=== PATIENT | male | born 1945 | race Caucasian/White ===

== ENCOUNTER 2016-10-02 12:09 | Observation (INO) | payer OTHER ==
--- NOTE | 2016-10-02 12:27 | CPEKG ---
Heart Rate: 60 RR Interval: 1000 P-R Interval: 180 QRSD Interval: 90 QT Interval: 420 QTC Interval: 420 P [place]: 37 QRS [place]: -28 T Wave [place]: 55 EKG Severity - ABNORMAL ECG - EKG Impression: SINUS RHYTHM EKG Impression: VENTRICULAR BIGEMINY EKG Impression: BORDERLINE LEFT AXIS DEVIATION Electronically Signed By: Estrellita Donald 02-Oct-2016 14:41:12
[2016-10-02] MEDS ORDERED: ASPIRIN 81 MG CHEWABLE TAB PO ONE (12:32)
[2016-10-02 12:33] LABS: ADD MORPH? NO; ATYPICAL LYMPHOCYTE FLAG 0 (0-99); FRAGMENT RBC FLAG 0 (0-99); HEMOGLOBIN 13.3 g/dL (13.7-17.5); LEFT SHIFT FLG 0 (0-99); LIPEMIA HEMOLYSIS FLAG 80 (0-99); MEAN CELL HEMOGLOBIN 33.7 pg (27.9-34.1); MEAN CELL HEMOGLOBIN CONCENTR. 33.3 g/dL (32.4-36.7); MEAN CELL VOLUME 101.3 fL (81.5-99.8); PLATELET CLUMPS FLAG 0 (0-99); PLATELET COUNT 115 10^3/uL (150-400); RED BLOOD CELL COUNT 3.95 10^6/uL (4.40-6.38); RED CELL DISTRIBUTION WIDTH 13.5 % (11.5-15.2)
[2016-10-02 12:36] LABS: ADD DIFF? YES; ADD SCAN? NO
[2016-10-02 12:48] LABS: ANION GAP 11 mEq/L (8-16); CALCIUM 9.4 mg/dL (8.5-10.4); CARBON DIOXIDE 24 mEq/l (22-31); CHLORIDE 106 mEq/L (97-110); CREATININE 1.1 mg/dL (0.7-1.3); GLOMERULAR FILTRATION RATE > 60; GLUCOSE 81 mg/dL (70-100); SODIUM 141 mEq/L (134-144)
[2016-10-02 12:59] LABS: TROPONIN I < 0.012 ng/mL (0.000-0.034)
--- NOTE | 2016-10-02 13:03 | EDPHY ---
H & P Time Seen by Provider: 10/02/16 12:43 HPI/ROS: CHIEF COMPLAINT: Chest pain HISTORY OF PRESENT ILLNESS: Patient is a 71-year-old male who presents to the emergency department with chest pain. The patient was driving his car to the dealership at approximately noon when he developed mild left-sided chest pain. He denies any radiation of his pain. No shortness of breath or cough. He felt lightheaded and dizzy. Patient also developed nausea with no vomiting. No diaphoresis. His symptoms lasted 5-10 minutes and then resolved. Patient has no leg pain or swelling. No recent travel. Patient states he had a cardiac catheterization 15 years ago. He was told he had a 50% occlusion at that time. No intervention was performed. He is not currently on any medications. REVIEW OF SYSTEMS: My complete review of systems is negative except as mentioned in the HPI. Past Medical/Surgical History: Includes CLL Past surgical history: Noncontributory Social history: The patient does not smoke. He smoked for 50 years ago. He drinks alcohol occasionally. Smoking Status: Former smoker Physical Exam: Vitals noted GENERAL: Well-appearing, in no acute distress, alert. HEENT: Eyes normal to inspection, normal pharynx, no signs of dehydration. NECK: No thyromegaly, no lymphadenopathy, supple. RESPIRATORY: Clear to auscultation bilaterally, no rales, rhonchi or wheezing. CVS: Regular rate and rhythm, no rubs, murmurs, or gallops. ABDOMEN: Soft, nontender, nondistended, no organomegaly. BACK: Normal to inspection, no CVA tenderness. SKIN: Normal color, no rash, warm, dry. No pallor. EXTREMITIES: No pedal edema, no calf tenderness, no Homans sign or cords, no joint swelling. NEURO/PSYCH: Higher functions: Alert and Oriented x3. Normal speech and cognition. Normal mood and affect. Cranial nerves: Normal as tested. Cerebellar: Normal as tested. Good finger to nose, good [id number], normal gait. Peripheral exam: Normal motor exam. Normal sensation. Constitutional: Initial Vital Signs Temperature (C) 36.5 C 10/02/16 12:16 Heart Rate 63 10/02/16 12:16 Respiratory Rate 18 10/02/16 12:16 Blood Pressure 120/70 10/02/16 12:16 O2 Sat (%) 98 10/02/16 12:16 O2 Delivery Mode Room Air Allergies/Adverse Reactions: No Known Allergies Allergy (Unverified 10/02/16 12:15) Home Medications: Medication Instructions Recorded NK [No Known Home Meds] 10/02/16 Medical Decision Making ED Course/Re-evaluation: In the emergency department I discussed possible etiologies with the patient. I answered all his questions. He is given aspirin 324 mg orally. Laboratory studies, EKG and chest x-ray were ordered. EKG: Sinus rhythm at 60. Borderline and left axis deviation. Normal intervals. VPCs Patient [place] [address]. I have no previous values in our system. It is noted the patient is a [facility] patient. The patient's troponin was negative. Chest x-ray: No acute disease Discussed the results with the patient. I answered all his questions. On recheck the patient had no chest pain or shortness of breath. I discussed case with the hospitalist service. Dr. Alanis will admit. I discussed case with [facility] to inform them of my plan for admission. Differential Diagnosis: Differential includes but is not limited to ACS, acute [place], dysrhythmia, dissection, aneurysm, CVA - Data Points Laboratory Results: Laboratory Results 10/02/16 12:25 10/02/16 12:25 10/02/16 10/02/16 12:25 12:25 WBC 38.83 10^3/uL H 10^3/uL (3.80-9.50) RBC 3.95 10^6/uL L 10^6/uL (4.40-6.38) Hgb 13.3 g/dL L g/dL (13.7-17.5) Hct 40.0 % % (40.0-51.0) MCV 101.3 fL H fL (81.5-99.8) MCH 33.7 pg pg (27.9-34.1) MCHC 33.3 g/dL g/dL (32.4-36.7) RDW 13.5 % % (11.5-15.2) Plt Count 115 10^3/uL L 10^3/uL (150-400) MPV 10.0 fL fL (8.7-11.7) Neut % (Auto) Not Reported Lymph % (Auto) Not Reported [place] % (Auto) Not Reported Eos % (Auto) Not Reported Baso % (Auto) Not Reported Nucleat RBC Rel Count 0.0 % % (0.0-0.2) Absolute Neuts (auto) Not Reported Absolute Lymphs (auto) Not Reported Absolute Monos (auto) Not Reported Absolute Eos (auto) Not Reported Absolute Basos (auto) Not Reported Absolute Nucleated RBC 0.00 10^3/uL 10^3/uL (0-0.01) Immature Gran % Not Reported Immature Gran # Not Reported Platelet Estimate Pending Smear Review By Pending Sodium 141 mEq/L mEq/L (134-144) Potassium 4.0 mEq/L mEq/L (3.5-5.2) Chloride 106 mEq/L mEq/L (97-110) Carbon Dioxide 24 mEq/l mEq/l (22-31) Anion Gap 11 mEq/L mEq/L (8-16) BUN 18 mg/dL mg/dL (7-23) Creatinine 1.1 mg/dL mg/dL (0.7-1.3) Estimated GFR > 60 Glucose 81 mg/dL mg/dL (70-100) Calcium 9.4 mg/dL mg/dL (8.5-10.4) Troponin I < 0.012 ng/mL ng/mL (0.000-0.034) Medications Given: Discontinued Medications Aspirin (Aspirin) 324 mg PO EDNOW ONE Stop: 10/02/16 12:33 Last Admin: 10/02/16 12:34 Dose: 324 mg Departure - Departure Disposition: [facility] In[facility] Acute Clinical Impression: Dizziness Chest pain Qualifiers: Chest pain type: other chest pain Qualified Code(s): R07.89 - Other chest pain Condition: Good Referrals: MARLEN KUHN [Other] - As per Instructions
[2016-10-02 13:23] LABS: MACROCYTES 1+; PLATELET ESTIMATE DECREASED (ADEQ)
[2016-10-02] MEDS ORDERED: ALBUTEROL 3 ML DEYVIAL IH PRN (15:16)
[2016-10-02] MEDS ORDERED: PROMETHAZINE HCL 25 MG/ML INJ IVP PRN (15:16)
[2016-10-02] MEDS ORDERED: ACETAMINOPHEN 325 MG TAB PO PRN (15:16)
[2016-10-02] MEDS ORDERED: ONDANSETRON DISINTEGRATING 4 MG TAB PO PRN (15:16)
[2016-10-02] MEDS ORDERED: ONDANSETRON 4 MG/2 ML VIAL IVP PRN (15:16)
[2016-10-02] MEDS ORDERED: oxyCODONE IR 5 MG TAB PO PRN (15:16)
--- NOTE | 2016-10-02 18:53 | GHP ---
[f rep st] HISTORY AND PHYSICAL DATE OF ADMISSION: 10/02/2016 CHIEF COMPLAINT: Chest pain. HISTORY: This is a 71-year-old man with past medical history of CLL who presents after experiencing about 30 minutes of severe substernal chest pain associated with nausea, lightheadedness, dizziness , and shortness of breath. The patient notes symptoms began around noon today while he was driving nearby to the hospital. Shortly after arrival, his symptoms did resolve spontaneously without inter vention. He had similar symptoms in the past, he notes about 15 years ago, at which time he underwe nt an angiogram. He notes that he was told back then that he had a 50% blockage of one of his coron sarah arteries but that no intervention was required. He has not had any chest pain in between then a nd now. He is not on any medications at this time. He notes he is quite active, cycling long dista nces, and does not generally get chest pain with any sort of exertion. He does note that he occasio zak gets some swelling in his ankles and feet and notes that his feet occasionally appear blue. Joy dickson has not had any recent illness. PAST MEDICAL HISTORY: CLL. PAST SURGICAL HISTORY: Shoulder and wrist surgeries. FAMILY HISTORY: Brother at age 71 in his sleep spontaneously, thought to be secondary to heart attack. Father of old age at age 93. Mother when he was young of cancer, he does not kn ow what kind. SOCIAL HISTORY: Patient is . He has a child. He is very active, cycling frequently long di stances. He has a remote smoking history but quit about 50 years ago. No significant alcohol use. No drug use. REVIEW OF SYSTEMS: A 10-point review of systems obtained, negative except as per HPI. HOME MEDICATIONS: None. ALLERGIES: None. PHYSICAL EXAM: VITAL SIGNS: BP 128/77, heart rate 63, respiratory rate 16, O2 sats 93% on room air , temperature is 36.4. GENERAL APPEARANCE: Well-developed, well-nourished man, awake, alert, no ac lauren distress. EYES: Anicteric. HENT: Oropharynx clear. CARDIOVASCULAR: Regular rate and rhythm, no MRG, sligh tly distant heart sounds. PULMONARY: CTA bilaterally. Normal work of breathing. ABDOMEN: Soft, nontender, nondistended. EXTREMITIES: No clubbing, cyanosis, or edema. SKIN: The patient has harjeet e varicosities in his distal lower extremities but otherwise warm, dry and well perfused. NEURO/PSY CHIATRIC: Oriented, appropriate, calm, pleasant. CLINICAL DATA: Labs reviewed. Significant for white blood cell count of 38.8, hematocrit of 40, pl atelets of 115. Chemistry is unremarkable. Troponins less than 0.012. Chest x-ray, personally rev iewed and interpreted, shows findings consistent with COPD; otherwise, no acute findings. EKG personally reviewed and interpreted showing sinus rhythm. There is borderline left axis deviati on and ventricular bigeminy. ASSESSMENT AND PLAN: This is a 71-year-old man with past medical history of CLL who presents with c hest pain in the setting of known nonobstructive coronary artery disease. 1. Chest pain. Some concerning descriptors in his history. He does have a reassuring initial eval uation including troponin and EKG that is not clearly ischemic. It is a concern that he has had harjeet e underlying coronary disease without any real secondary risk modification being undertaken. At thi s time we will check a lipid panel and hemoglobin A1c. We will monitor on telemetry with serial tro ponins. Will order a stress test for the morning but also consult Cardiology in case they feel it w ould be more prudent to proceed with coronary angiography. 2. Nonobstructive coronary disease as per above. Patient has not been on aspirin, statin in the hi st. Likely would be intolerant of beta cornell with hypotension and bradycardia at baseline. Again , workup is as per above. 3. Bradycardia. The patient has been noted to be neeta into the 40s since arrival. This has not b een symptomatic. He does not believe this is his usual baseline. He states he usually runs around 60. Again, will monitor on telemetry and Cardiology has been consulted. 4. Chronic lymphocytic leukemia. The patient states that his white blood cell count has been in th e 30,000 range for quite some time and this is being followed by Oncology without any current plans for intervention. We will continue to trend. DISPOSITION: Observation status. Suspect he will need less than 48 hours stay for evaluation and m anagement of above. Patient is new to my care. Old records reviewed, summarized as per HPI and past medical history. C are plan reviewed with Oncologist including request for Cardiology consultation. /[id number]/MODL
--- NOTE | 2016-10-03 01:18 | CPEKG ---
Heart Rate: 47 RR Interval: 1277 P-R Interval: 208 QRSD Interval: 92 QT Interval: 480 QTC Interval: 425 P [place]: 42 QRS [place]: -13 T Wave [place]: 61 EKG Severity - ABNORMAL ECG - EKG Impression: NORMAL SINUS RHYTHM MINIMAL ST DEPRESSION EKG Impression: BORDERLINE T ABNORMALITIES, ANT-LAT LEADS EKG Impression: NONSPECIFIC ST_T WAVE ABNORMAILITES Electronically Signed By: Dawson Gomez 03-Oct-2016 15:54:53
[2016-10-03 05:30] LABS: ADD MORPH? NO; ATYPICAL LYMPHOCYTE FLAG 0 (0-99); FRAGMENT RBC FLAG 0 (0-99); HEMATOCRIT 40.8 % (40.0-51.0); HEMOGLOBIN 13.6 g/dL (13.7-17.5); LEFT SHIFT FLG 0 (0-99); LIPEMIA HEMOLYSIS FLAG 80 (0-99); MEAN CELL HEMOGLOBIN 33.9 pg (27.9-34.1); MEAN CELL HEMOGLOBIN CONCENTR. 33.3 g/dL (32.4-36.7); MEAN CELL VOLUME 101.7 fL (81.5-99.8); MEAN PLATELET VOLUME 9.7 fL (8.7-11.7); PLATELET CLUMPS FLAG 0 (0-99); PLATELET COUNT 106 10^3/uL (150-400); RED BLOOD CELL COUNT 4.01 10^6/uL (4.40-6.38); RED CELL DISTRIBUTION WIDTH 13.5 % (11.5-15.2)
[2016-10-03 05:34] LABS: ADD DIFF? YES; ADD SCAN? NO
[2016-10-03 05:46] LABS: CHOLESTEROL 172 mg/dL (140-220); CHOLESTEROL/HDL RATIO 3.51 RATIO (1.00-4.97); HIGH DENSITY LIPOPROTEIN 49 mg/dL (40-65); LDL/HDL RATIO 2.18 RATIO (1.00-3.64); LOW DENSITY LIPOPROTEIN 107 mg/dL (80-100); NON-HIGH DENSITY LIPOPROTEIN 123 mg/dL (90-129); TRIGLYCERIDE 84 mg/dL (40-150); VERY LOW DENSITY LIPOPROTEINS 16 mg/dL (8-25)
[2016-10-03 06:06] LABS: PLATELET ESTIMATE DECREASED (ADEQ); SMUDGE CELLS 1+
[2016-10-03 07:14] VITALS: BP 120/75; PULSE 63; TEMP 97.9; O2SAT 97
[2016-10-03 07:15] VITALS: RESP 20
--- NOTE | 2016-10-03 08:04 | HOSPPROG ---
Hospitalist Progress Note Assessment/Plan: 71 yo M w almost certain vasovagal event following blood draw VV- impressive w HR in 30's and sbp in 60's w diaphoresis ekg w sinus neeta and no ischemic changes (interp by me) spontaneous resolution c/w vagal 35' crit care Subjective: responded to STAT team call for bradycardia/hypotension following blood draw Objective: Vital Signs Temp Pulse Resp BP Pulse Ox 36.6 C 63 20 120/75 97 10/03/16 07:09 10/03/16 07:09 10/03/16 07:09 10/03/16 07:09 10/03/16 07:09 Laboratory Results 10/03/16 05:21 10/02/16 10/03/16 10/04/16 05:59 05:59 05:59 Intake Total 350 Balance 350 - Physical Exam Constitutional: other (diaphoretic) Eyes: PERRL, anicteric sclera Ears, Nose, Mouth, Throat: moist mucous membranes, hearing normal Cardiovascular: bradycardia, No systolic murmur Respiratory: no respiratory distress Gastrointestinal: normoactive bowel sounds Skin: warm, normal color Musculoskeletal: full muscle strength Neurologic: No AAOx3 ICD10 Worksheet Patient Problems: Problems Problem Status Onset Chest pain Acute Dizziness Acute
[2016-10-03 10:05] LABS: HEMOGLOBIN A1C 5.7 % (4.0-6.0)
--- NOTE | 2016-10-03 10:25 | CPEKG ---
Heart Rate: 56 RR Interval: 1071 P-R Interval: 188 QRSD Interval: 96 QT Interval: 440 QTC Interval: 425 P [place]: 53 QRS [place]: 6 T Wave [place]: 51 EKG Severity - OTHERWISE NORMAL ECG - EKG Impression: SINUS RHYTHM EKG Impression: VENTRICULAR PREMATURE COMPLEX Electronically Signed By: Dawson Gomez 03-Oct-2016 15:53:10
--- NOTE | 2016-10-03 12:45 | CPR ---
[f rep st] NONINVASIVE CARDIAC PROCEDURE REPORT TEST PERFORMED: Exercise treadmill of exercise treadmill MPI study. SUPERVISING HOOP MACHINE OPERATOR: Gustabo Little MD. INDICATION FOR STRESS TESTING: Episodes of chest pain, known history of CAD, multiple cardiac risk factors. PRE: After obtaining informed consent, ensuring patient's n.p.o. status, patient was placed on 12-l ead electrocardiogram. Initial EKG shows sinus rhythm, leftward axis, nonspecific inferior lateral T-wave abnormalities. Patient denies any chest pain, shortness of breath, or symptoms suggesting of ischemia. Initial blood pressure 130/70, saturation 96%. STRESS: The patient was placed on exercise treadmill, following standard Blade protocol with the fo llowing findings: 1. Patient exercised for 10 minutes. 2. 10.9 METs. 3. Heart rate attained was 143 beats per minute, which was 95% of MPHR. 4. At peak exercise, there was noted sub millimeter upsloping ST depression in inferior lateral yousuf ds. 5. Patient had no chest pain or symptoms suggesting of ischemia throughout testing. 6. BP variations: Rest 130/70. Peak 140/80. 7. SpO2 greater than 90% throughout the testing. 8. Patient had occasional premature ventricular contraction during stress and recovery stage but no other malignant arrhythmias. 9. Testing was stopped due to maximum effort. 10. Roman treadmill score of 10, placing him at low cardiovascular risk. RECOVERY: Patient recovered for 5 minutes, heart rate returned back to baseline. He reported gifty nued to be asymptomatic. Occasional premature ventricular contractions noted. IMPRESSION: A 71-year-old male with known history of CAD, underwent exercise treadmill testing MPI study. Treadmill testing negative for ischemia. Roman treadmill score of 10, placing patient at low cardiovascular risk. The patient's vital signs are stable. He has been taken down to [facility] for post MPI imaging. MPI results pending. /[id number]/MODL
--- NOTE | 2016-10-03 13:45 | GCON ---
[f rep st] CONSULTATION CARDIAC CONSULTATION SUPERVISING SALES DEVELOPMENT EXECUTIVE: Dr. Gustabo Little. INDICATION FOR CARDIOLOGY CONSULTATION: Patient with known history of CAD, recent episode of chest pressure and lightheadedness. HISTORY OF PRESENT ILLNESS: The patient is a 71-year-old male. He has informed me that he has known history of CAD, based off a cardiac catheterization in 2001 done at [facility]. At that time, he reports that he was told that he had a 50% narrowing of one of his 3 major coronary arteries , but he is uncertain of where. He does state that he is followed by [facility]. Patient also reports other past medical history including CLL and sleep apnea. He reports that he had been in his normal state of health. He reports he was driving his 's car to the dealership for evaluation, from [place] where he resides. [place] [address] [place] [address], he developed a midsternal mild chest pressure, reporting as 2/10, with associated symptoms of mild dizziness and nausea. He reports these symptoms, in his words, were very "minor." Thinking nothing of this, he thought they would reside within a few minutes. As he drove on for another 5-10 minutes, symptoms did not relieve, but did not worsen, and as he passed [facility], he felt that due to his previous history, his age, he better be further evaluated. He was admitted through the emergency department, where he underwent an electrocardiogram, initial EKG showing sinus rhythm, left axis deviation, with premature ventricular contraction, no acute ST or T-wave abnormalities suggestive of ischemia. The patient reported within 5 to 10 minutes of ER admission, his symptoms and pressure did subside. He denies any palpitations at the time of symptoms. His initial troponin in the ER was less than 0.012. He was given aspirin. Chest x-ray was done, showing hyperexpanded lungs, consistent with COPD, no other acute cardiopulmonary process. He was admitted to 3rd floor and placed on continuous telemetry monitoring. He has had cycled troponins 2 more times, which have all been less than 0.012. He did, last night around 1 a.m., while getting blood work, when he was having an IV placed into his left antecubital, did report feeling sudden lightheadedness, nausea, and very diaphoretic. It was noted that he did drop his heart rate down into the 30s , and appeared by the strip, junctional rhythm. A stat team was called, and he was given IV fluid by Dr. Antoine of hospital services. This was felt to be a vasovagal reaction. Within 15-20 minutes, he felt better, with IV fluids. He reports that during that time, he had no chest pressure or pain. Patient informs me today during our interview that he is an avid cyclist, usually rides between 100-110 miles a week. He does report last week while training, he was able to complete his regular exercise, but did have some mild fatigue symptoms. He denies any recent fevers, chills, night sweats or signs of infection. Denies any bleeding issues. He reports no history of orthopnea, PND, edema, palpitations, near-syncope, or syncopal events. Denies any symptoms suggestive of TIA or CVA. He has cardiac risk factors besides known history of CAD that include age, sex, previous smoker, and he does report that his older brother of sudden cardiac at 70, uncertain of cause. PAST MEDICAL HISTORY: Includes non-flow limiting CAD based off cardiac catheterization in 2001; sleep apnea, for which he is using a bite guard; CLL, for which he is followed by Dr. Fan of Oncology. PAST SURGICAL HISTORY: Includes shoulder and wrist surgeries. FAMILY HISTORY: Patient reports older brother dying at age 70-71 during his sleep of sudden cardiac . They think potentially this was due to a cardiac issue, but the patient reports no autopsy was done. The patient reports father of old age at 93, and mother of cancer, young. SOCIAL HISTORY: He is a superintendent general. He is . He has 1 adult child who is alive and well. He reports previous history of smoking when he was in the [employer], quitting greater than 50 years ago. He drinks 1 beer a week. Denies any illicit drug use. Occasional caffeine use. REVIEW OF SYSTEMS: A 10-point review of systems done on patient. All negative, except as mentioned above. ALLERGIES: Patient reports no known drug allergies. HOME MEDICATIONS: The patient reports no home medications at this time. PHYSICAL EXAMINATION: GENERAL APPEARANCE: Tall, well-groomed male. He is alert and oriented to person, place, time, and situation. Appears to be under no acute distress. CURRENT VITAL SIGNS: Blood pressure is 120/75, heart rate of 63, sinus rhythm on the monitor, respirations 20, saturating 97% on room air, temperature 36.6 degrees Celsius. HEENT: Head is normocephalic. Lips and tongue are pink and moist, with no signs of cyanosis. Conjunctivae pink. NECK: Trachea is midline, +2 carotid pulses bilateral. No auscultated bruits. No jugular vein distention. RESPIRATORY: Lungs are clear to auscultation. No rhonchi, rales or wheezes. No accessory muscle use. No intercostal muscle retraction noted. CARDIAC: Regular rate, regular rhythm, S1, S2, no S3, S4, gallops, rubs or murmur noted. ABDOMEN: Soft, nontender, bowel sounds x4 quadrants. No organomegaly. No palpable masses. SKIN: [place], warm, dry, no cyanosis, no clubbing, no peripheral edema. VASCULAR: +2 carotids bilateral, +2 radials bilateral, +2 dorsal pedal and posterior tibial pulses bilateral. SKIN: [place], warm, dry, no cyanosis, no clubbing, no peripheral edema. LABORATORY STUDIES: Laboratory studies drawn today show WBC of 40.6, hemoglobin of 13.6, hematocrit of 40.8, platelet count of 106. Electrolytes on admission yesterday show sodium of 141, potassium 4.0, chloride 106, CO2 24, BUN 18, creatinine 1.1, glucose 81, calcium 9.4. Today, hemoglobin A1c was 5.7. Triglycerides 84, total cholesterol 172, LDL 107, HDL 49. Troponins x3 have all been less than 0.012. STUDIES: Electrocardiogram, initial EKG as mentioned above. Chest x-ray as mentioned above. This morning's electrocardiogram shows sinus bradycardia with a rate of 56 beats per minute, leftward axis, no significant ST or T-wave abnormalities, premature ventricular contraction. ASSESSMENT AND PLAN: 1. Chest pain: Patient admitted with chest pressure, spontaneously yesterday, does report that has been feeling some mild fatigue with exercise, but no chest pressure or pain last week when riding his bike. Troponin levels have all been negative x3. Patient does report previous history of CAD with a 50% non-flow limiting narrowing based off cardiac catheterization in 2001. Unfortunately, at this time, I am unable to find past report. I have asked medical records to review archive to see if we can find the testing results. The patient reports no further episodes of chest pressure or pain since being here. He has been started on aspirin therapy. He did have what appeared to be a vasovagal reaction last evening with a blood draw, and reporting no chest pain, despite being hypotensive and lower heart rate. At this time, will have patient undergo ETT MPI study for further evaluation of cardiac ischemia. If showing positive for schema, then potentially patient will need to have coronary angiogram. 2. History of coronary artery disease: Patient reports history of non-flow- limiting coronary artery disease based off coronary angiogram in 2001. I am attempting to get old report. He has been started on aspirin therapy. He is currently not on statins. Fasting lipid panel did show LDL of 107. [place] goal would be less than 70. I will discuss with patient about starting statin therapy. Recommend atorvastatin at 20 mg p.o. daily. He would like to hold off and speak with his PCP after discharge. 3. Lightheadedness: Patient reported with chest pressure of episode of lightheadedness, no palpitations. Patient had been on continuous cardiac monitoring, besides vasovagal reaction last evening IV stick (brief junctional) , no significant arrhythmias noted. Will continue him on cardiac monitoring, if no arrhythmias are identified, would recommend patient have an outpatient Holter monitoring at [facility]. 3. History of chronic lymphocytic leukemia: Patient reports this is well controlled, noted to have elevated white blood cell count. Continue to monitor. 4. Vasovagal reaction: Patient noted to have a vagal reaction last night following blood draw, with reported heart rate drop. Reviewing strip, shows the brief episode of junctional rhythm. Patient was given IV fluid, and symptoms resolved. Patient reports no chest pressure, pain, or symptoms suggestive of ischemia at the time of event. 5. Obstructive sleep apnea: Patient's oxygen saturation remained stable throughout the night. Patient reports he has a bite block, unable to tolerate CPAP. He is scheduled for a sleep evaluation later on this month with Sleep Medicine. I have encouraged him to follow through. Thank you for this consultation. We will be glad to follow along with you. /[id number]/MODL MTDD
--- NOTE | 2016-10-04 07:32 | GDS ---
[f rep st] DISCHARGE SUMMARY SERVICE: [facility] hospitalist. CONSULTS: Cardiology. PROCEDURES Nuclear stress testing, EKG, chest x-ray. HISTORY AND PHYSICAL: Please see previously dictated note by Dr. Alanis. ADMISSION DIAGNOSES: 1. Chest pain. 2. Nonobstructive coronary artery disease. 3. Bradycardia. 4. Chronic lymphocytic leukemia. DISCHARGE DIAGNOSES: 1. Chest pain. 2. Nonobstructive coronary artery disease. 3. Bradycardia. 4. Chronic lymphocytic leukemia. HOSPITAL COURSE BY PROBLEM LIST: 1. Chest pain, in the setting of known nonobstructive coronary artery disease. He was admitted for observation with telemetry monitoring because of symptoms of chest pain, nausea, lightheadedness, dizziness and shortness of breath. He had serial troponins drawn which were all less than 0.012. Cardiology was asked to consult him and Dr. Wilson recommended a nuclear stress test which was performed on 10/03/2016. Treadmill portion of the nuclear stress test was negative for ischemia. Nuclear portion of the stress test showed an EF of 62%. No focal wall abnormalities. No definite ischemia and perhaps a small area of inferolateral infarct at the left ventricle per Dr. Mckeon but it was also reviewed by Cardiology and they did not think that this was a significant area per Dr. Wilson. He is going to be discharged home to follow up with his primary care provider, at [place], Dr. Sundar Amador. He says he has not seen a income tax administrator for at least 15 years. Recommendations are to establish care with Cardiology at [place] and to start statin medication daily for risk stratification. This was not started at discharge, so that his PCP would be able to review the risks, benefits, in more detail with him, and also ensure that it was ordered per the [facility] formulary. 2. Bradycardia. An episode of symptomatic bradycardia was noted overnight, which was attended by our on-call hospitalist. He had a systolic blood pressure in the 60s with diaphoresis at that time. EKG showed sinus bradycardia, no ischemic changes. He has spontaneous resolution of his symptoms with a vagal maneuver, no pharmacology intervention was needed. He denies having any previous similar episodes to this. Further evaluation deferred to the outpatient setting as it did seem to be consistent with vasovagal. 3. CLL. His white blood cell count was 38.8 on arrival, 40.6 on the day of discharge. Hemoglobin was 13.3 on arrival, 13.6 on discharge. Platelet count was 115 on arrival, 106 on discharge. We do not have any other lab values for comparison as he is a patient at [facility]. He should follow up with his primary care provider and primary oncologist. DISCHARGE MEDICATIONS: He is discharged home without any medications, as he does not take any chronic medications. However, as noted above Cardiology strongly recommended that he start on a statin as an outpatient and this can be discussed with his PCP and Cardiology, as above. DISCHARGE INSTRUCTIONS: If at any time he has recurrence of chest pain, shortness of breath, low blood pressure or low heart rate, or any other concerns , he is to return immediately to the nearest healthcare facility for further cardiac evaluation. Otherwise, he is instructed to contact his primary care provider, Dr. Sundar Sigala at the [facility] facility, and have an appointment within a few days of discharge. Referral to Cardiology within the [facility] system or with [facility] per his PCPs instructions. /[id number]/MODL and [id number], 10/04/16713 [facility]
== END 2016-10-03 16:01 | disposition home or self-care (01) ==
LOC: F3E 14:14
PROVIDERS: ADMIT Internal Medicine; ATTEND Family Medicine
DX: R07.89 Other chest pain (principal); I25.10 Atherosclerotic heart disease of native coronary artery without angina pectoris; R00.1 Bradycardia, unspecified; C91.10 Chronic lymphocytic leukemia of B-cell type not having achieved remission; Z87.891 Personal history of nicotine dependence
CPT/HCPCS: 71020; 78452; 93005; 93017; 99285; A9500; G0378